=== PATIENT | female | born 1980 | race Caucasian/White ===

== ENCOUNTER 2023-08-23 10:58 | Inpatient (IN) | payer OTHER, SELFPAY ==
--- NOTE | 2023-08-23 11:33 | ED.GENADULT ---
HPI - General Adult General Chief complaint: Failure to Thrive Stated complaint: sick hasn't ate or drank in 4-5 days Time Seen by Provider: 08/23/23 11:07 Source: patient and EMS Mode of arrival: EMS Limitations: other (Acute psychosis) History of Present Illness ED Provider: Taurus HERNANDEZ HPI narrative: 43-year-old female presents from [facility] with increased paranoia, not eating or drinking for the past 3 or 4 days. Patient alert and oriented x4 however is refusing to answer the majority of my questions. No thank you please leave is all she says when I ask her the majority of questions. Unable to obtain clear hpi and ros. Patient states call my to pick me up please im talking to god right now Related Data Allergies Allergy/AdvReac Type Severity Reaction Status Date / Time Unable to Assess Allergy Verified 08/23/23 12:27 Review of Systems Review of Systems: Yes all other systems are reviewed and are negative PMFSH Past Medical History Source: old records reviewed and nursing notes reviewed Social History Social History Advance Directives: No Do you have a plan to hurt others: Vague Physical Exam ED Vital Signs: Vital Signs - 24 hr 08/23/23 18:59 08/23/23 20:30 08/24/23 02:10 Temperature 98.3 F 98.3 F 97.9 F Pulse Rate 104 H 100 96 Respiratory Rate 14 16 16 Blood Pressure 129/90 H 130/79 Pulse Oximetry 98 98 97 Oxygen Delivery Method Room Air Room Air Room Air BMI result Body Mass Index 24.1 Refused Appearance: Alert.? Oriented X3.? No acute cardiopulmonary distress distress.? Head: Normocephalic, atraumatic, no step-offs or deformities Neck: Normal inspection.? Neck supple.? CVS: Pulses normal.? Respiratory: No respiratory distress.? Skin: ? Normal skin color. Extremities: 5/5 strength to bilateral upper and lower extremities Neuro: Oriented X 3.? Refusing neuro assessment Patient is refusing a hands on exam. Not letting me listen to heart, lungs are palpate abdomen. Refusing to do a full neurological assessment. Course Reevaluation(s) Reevaluation #1: refusing everything screaming out speaking to self and responding to internal stimuli Time: 12:10 Reevaluation #2: Continues to refuse labs. Very paranoid. Time: 15:14 Reevaluation #3: Psych aware of this patient. Labs pending Time: 15:14 Additional Reevaluation(s): CBC unremarkable. Elevated sodium of 158, anion gap of 21 likely secondary to starvation, BUN of 30, creatinine 1.02 IV fluids ordered. Magnesium 2.9. Patient has not been eating and drinking which is likely reason why patient's labs like the way they do. Will hydrate with IV fluids and repeat labs. CPK also elevated 749. IV fluids ordered. Sign out to [facility] [employer] Nursing staff had difficulty gaining IV access Phalen's starting fluids, after being medicated she was agreeable. [place] through IV fluid administration she began pulling at her IV access attempting your usual, she was then very fixated that something was wrong with the IV functions becoming increasingly anxious. She was amenable in anxiolytic so she is safe lorazepam.Patient received total of 3 L IV crystalloid, remains hypernatremic, repeat sodium of 158, BUN and creatinine 25/0.85. Starting D5W at 01:25 an hour, Admitted to medicine service, Dr. Tuttle and will place order for psych consult Medications Administered Discontinued Medications Generic Name Dose Route Start Last Admin Trade Name Freq PRN Reason Stop Dose Admin Diphenhydramine HCl 50 mg 08/23/23 12:11 08/23/23 14:00 Diphenhydramine Hcl 50 Mg/Ml Vial IM 08/23/23 12:12 50 mg ONCE ONE Administration Sodium Chloride 1,000 mls @ 999 mls/hr 08/23/23 16:15 08/23/23 23:07 Ns IV 08/23/23 17:15 Infused .Q1H1M MAYA Infusion Sodium Chloride 1,000 mls @ 999 mls/hr 08/23/23 16:15 08/24/23 00:30 Ns IV 08/23/23 17:15 Infused .Q1H1M MAYA Infusion Sodium Chloride 1,000 mls @ 999 mls/hr 08/23/23 16:15 08/23/23 23:07 Ns IV 08/23/23 17:15 Infused .Q1H1M MAYA Infusion Lorazepam 2 mg 08/23/23 12:11 08/23/23 14:00 Lorazepam 2 Mg/Ml Vial IM 08/23/23 12:12 2 mg ONCE ONE Administration Lorazepam 2 mg 08/23/23 21:36 08/23/23 21:45 Lorazepam 2 Mg/Ml Vial IVPUSH 08/23/23 21:37 2 mg ONCE ONE Administration Olanzapine 5 mg 08/23/23 12:11 08/23/23 14:00 Olanzapine 10 Mg Vial IM 08/23/23 12:12 5 mg ONCE ONE Administration Medical Decision Making Medical Decision Making [facility] Narrative: 43-year-old female presents with increasing paranoia coming in from [facility]. Unable to provide me a clear history or review of systems. Physical exam essentially unremarkable however she is refusing a hands on exam unable to auscultate heart, lungs are palpate abdomen. Not participating in neurological assessment History and physical exam concerning for acute paranoia and psychosis. I am concerned for metabolic derangements as patient is not eating or drinking. Will rule out UTI. No signs of traumatic injury to head, neck, chest, abdomen or pelvis. Plan labs, urine, care team evaluation Differential Diagnosis Differential Diagnoses: The differential diagnosis associated with the presentation includes History and physical exam concerning for acute paranoia and psychosis. I am concerned for metabolic derangements as patient is not eating or drinking. Will rule out UTI. No signs of traumatic injury to head, neck, chest, abdomen or pelvis. Admission/Observation Consideration of admission/observation: Escalation of care including admission/observation considered possible Consult Healthcare Provider Management of the patient was discussed with: Behavioral Health Provider Lab Data [facility] Lab Attestation statement: I reviewed the patient's lab results. 08/23/23 15:31 08/24/23 01:10 Labs: Lab Results 08/23/23 08/23/23 08/24/23 Range/Units 15:31 22:44 01:10 WBC 8.3 (4.8-10.8) X10*3/uL RBC 5.33 (4.20-5.50) X10*6/uL Hgb 15.6 (12.0-16.0) g/dl Hct 47.9 H (37.0-47.0) % MCV 89.9 (80.0-98.0) fL MCH 29.3 (27.0-33.0) pg MCHC 32.6 (31.0-35.0) g/dl RDW 13.8 (11.0-16.0) % Plt Count 250 (160-400) X10*3/uL MPV 11.0 (9.4-12.3) fL Immature Gran % (Auto) 0.2 (0.0-0.4) % Neut % (Auto) 60.3 (45-73) % Lymph % (Auto) 30.5 (20-40) % [place] % (Auto) 8.4 (2-11) % Eos % (Auto) 0.1 (0-4) % Baso % (Auto) 0.5 (0-2) % Lymph # (Auto) 2.5 (1.2-4.9) X10*3/uL [place] # (Auto) 0.7 (0.1-1.2) X10*3/uL Eos # (Auto) 0.0 (0.0-0.4) X10*3/uL Baso # (Auto) 0.0 (0.0-0.2) X10*3/uL Abs Immat Gran (auto) 0.02 (0.00-0.03) X10*3/uL Absolute Neuts (auto) 5.0 (2.0-8.3) x10*3/uL Absolute Nucleated RBC 0.000 (0.0-0.012) X10*3/uL Nucleated RBC % (auto) 0.0 (0.0-0.2) /100WBC Hold Blue Top SEE NOTE Sodium 158 H 159 H (135-145) mmol/L Potassium 4.1 3.8 (3.3-5.1) mmol/L Chloride 117 H 125 H (96-108) mmol/L Carbon Dioxide 24 22 (22-29) mmol/L Anion Gap 21 H 16 (12-20) BUN 30 H 25 H (9-16) mg/dL Creatinine 1.02 0.85 (0.5-1.4) mg/dL Estim Creat Clear Calc 63.3 76.0 Estimated GFR 59 > 60 Random Glucose 97 85 (60-115) mg/dL Osmolality 336 H (281-305) mosm/kg Calcium 10.1 8.3 L D (8.4-10.2) mg/dL Magnesium 2.9 H (1.6-2.6) mg/dL Total Bilirubin 1.0 (0.0-1.0) mg/dL AST 51 H (5-31) U/L ALT 64 H (0-31) U/L Alkaline Phosphatase 57 (39-117) U/L Total Creatine Kinase 749 H 695 H (26-140) U/L Total Protein 8.5 H (6.5-8.0) g/dL Albumin 4.8 (3.5-5.0) g/dL Hold Red Top See Note Urine Color Dark Yellow Urine Appearance Cloudy Urine pH 5.5 (5.0-9.0) Ur Specific [place] 1.025 (1.005-1.025) Urine Protein Trace (Neg-Trace) mg/dL Urine Glucose (UA) Negative (Negative) mg/dL Urine Ketones 40 (Negative) mg/dL Urine Blood Trace H (Negative) Urine Nitrite Negative (Negative) Ur Leukocyte Esterase Small (1+) H (Negative) Urine RBC 3-5 H (0-2) /HPF Urine WBC 0-5 (0-5) /HPF Ur Squamous Epith Cells 3-5 (0-2) /HPF Urine Bacteria Trace (None Seen) Hyaline Casts 3-5 (0-2) /LPF Urine Test NEGATIVE (NEGATIVE) Critical Care Time Critical Care Time Critical Care Time: No Discharge Plan Discharge Clinical Impression: Acute psychosis, Dehydration, Acute hypernatremia Patient Disposition: Still a Patient Print Language: Citizen Of [place]
--- NOTE | 2023-08-23 12:04 | MHC.EDTECH ---
Patient refused blood work.
[2023-08-23 12:26] VITALS: BMI 24.1
[2023-08-23] MEDS: diphenhydrAMINE HCL 50 MG/ML VIAL IM (14:00)
[2023-08-23] MEDS: LORazepam 2 MG/ML VIAL IM (14:00)
[2023-08-23] MEDS: OLANZapine 10 MG VIAL 5 MG IM (14:00)
[2023-08-23 15:40] LABS: MANUAL DIFF FLAG NO
[2023-08-23 15:44] LABS: Basophils Percent Auto 0.5 % (0-2); Eosinophils Percent Auto 0.1 % (0-4); Hematocrit 47.9 % (37.0-47.0); Hemoglobin 15.6 g/dl (12.0-16.0); Imm Gran Abs Auto 0.02 X10*3/uL (0.00-0.03); Imm Gran Pct Auto 0.2 % (0.0-0.4); Lymphocytes Absolute Auto 2.5 X10*3/uL (1.2-4.9); Lymphocytes Percent Auto 30.5 % (20-40); Mean Corpuscular HGB Conc 32.6 g/dl (31.0-35.0); Mean Corpuscular Hemoglobin 29.3 pg (27.0-33.0); Mean Corpuscular Volume 89.9 fL (80.0-98.0); Monocytes Absolute Auto 0.7 X10*3/uL (0.1-1.2); Monocytes Percent Auto 8.4 % (2-11); Neutrophils Percent Auto 60.3 % (45-73); Platelet Count 250 X10*3/uL (160-400); Red Blood Count 5.33 X10*6/uL (4.20-5.50); Red Cell Distribution Width 13.8 % (11.0-16.0); White Blood Count 8.3 X10*3/uL (4.8-10.8)
--- NOTE | 2023-08-23 15:48 | PC.NURSE ---
able to draw patient's lab- pt c/o dizziness- explained to patient is due to the medication she received from earlier- encouraged patient to lie back down in bed
[2023-08-23 16:07] LABS: Alanine Aminotransferase 64 U/L (0-31); Albumin Level 4.8 g/dL (3.5-5.0); Alkaline Phosphatase 57 U/L (39-117); Anion Gap 21 (12-20); Aspartate Amino Transferase 51 U/L (5-31); Blood Urea Nitrogen 30 mg/dL (9-16); Calcium 10.1 mg/dL (8.4-10.2); Carbon Dioxide 24 mmol/L (22-29); Chloride 117 mmol/L (96-108); Creatinine Clr Calc Pharmacy 63.3; Estimated Glomerular Filt Rate 59; Glucose Random 97 mg/dL (60-115); Magnesium 2.9 mg/dL (1.6-2.6); Potassium 4.1 mmol/L (3.3-5.1); Sodium 158 mmol/L (135-145); Total Protein 8.5 g/dL (6.5-8.0)
[2023-08-23 16:57] LABS: Osmolality, Serum 336 mosm/kg (281-305)
[2023-08-23] MEDS: 0.9 % Sodium Chloride 1,000 ML 999 ML IV ×3 (18:54→23:07)
[2023-08-23 18:59] VITALS: BP 129/90; PULSE 104; RESP 14; TEMP 36.8; O2SAT 98
--- NOTE | 2023-08-23 19:18 | PC.NURSE ---
ASSUMED CARE OF PT AT THIS TIME. 1&2ND BAG OF IVF INFUSING PER MAR. PT IS CALM/COOPERATIVE RESTING COMFORTABLY IN STRETCHER. PT CHANGED OVER TO HOSPITAL CLOTHES, 1;1 SITTER AT BEDSIDE.
--- NOTE | 2023-08-23 20:28 | PC.NURSE ---
pt was attempting to pull her iv out. iv is painful when flushing, cool to touch. pt is refusing to let this rn place another line. pt states her body is refusing the fluid. Patricio made aware.
[2023-08-23 20:30] VITALS: PULSE 100; RESP 16; TEMP 36.8; O2SAT 98
--- NOTE | 2023-08-23 20:31 | MHC.EDTECH ---
pt refused blood pressure, urine sample, and oral temperature. Also refused new IV placement by JOE Tejada. RN aware
--- NOTE | 2023-08-23 20:40 | PC.NURSE ---
Addendum entered by Patricio Alegre 08/23/23 21:16: extension service specialist in charge Karen, this JOE sinclair and raul RN attempt to connect ivf to iv. pt continues to refuse stating i dont need fluids, go. oswald hearing therapy director aware. no further orders at this time. Original Note: PT ATTEMPTING TO REMOVE IV. IV PATENT AND FLUSHING HOWEVER PT REFUSED FOR FLUIDS TO BE INFUSING. PT REFUSING BLOOD WORK, UA SAMPLE, VITALS AT THIS TIME; PT EDUCATED ON NEED. PROVIDER AWARE.
--- NOTE | 2023-08-23 21:36 | PC.NURSE ---
This rn attempted to reconnect pt ivf and pt refused again. pt states she is a super human and doesnt need food or water. plan is to medicate with ativan per Steven King np
[2023-08-23] MEDS: LORazepam 2 MG/ML VIAL IVPUSH (21:45)
--- NOTE | 2023-08-23 22:07 | PC.NURSE ---
pt is now calm/cooperative speaking full clear sentences. explained to this RN that she just wants to be discharged and not kept overnight, educated pt needs ivf and repeat labs and pt in agreement. ivf infusing per mar. pt explained to this RN life hx, relationship with kids, states shes upset about having to get a divorce with after 21 years. pt denies si/hi to this rn. 1:1 sitter at bedside. axox3.
[2023-08-23 22:54] LABS: Appearance Urine Cloudy; Color Urine Dark Yellow; Glucose Urine UA Negative (Negative); Leukocyte Esterase Urine Small (1+) (Negative); Nitrite Urine Negative (Negative); PH 5.5 (5.0-9.0); Specific Gravity - Urine 1.025 (1.005-1.025); UMIC TRIGGER UACC YES; Urine Blood Trace (Negative); Urine Ketones 40 mg/dL (Negative); Urine Protein Trace mg/dL (Neg-Trace)
[2023-08-23 22:56] LABS: UPreg QC Valid YES; Urine Pregnancy NEGATIVE (NEGATIVE)
[2023-08-23 23:07] LABS: Bacteria Urine Trace (None Seen); UACC Culture Trigger YES; WBC Urine 0-5 /HPF (0-5)
[2023-08-24 01:31] LABS: Anion Gap 16 (12-20); Blood Urea Nitrogen 25 mg/dL (9-16); Calcium 8.3 mg/dL (8.4-10.2); Carbon Dioxide 22 mmol/L (22-29); Chloride 125 mmol/L (96-108); Estimated Glomerular Filt Rate > 60; Glucose Random 85 mg/dL (60-115); Potassium 3.8 mmol/L (3.3-5.1); Sodium 159 mmol/L (135-145)
[2023-08-24 02:10] VITALS: BP 130/79; PULSE 96; RESP 16; TEMP 36.6; O2SAT 97
--- NOTE | 2023-08-24 02:25 | PM.IMHP ---
History of Present Illness Date of Service: 08/24/23 Chief Complaint: Paranoia This is a 43-year-old female who was sent from [facility] with increased paranoia and refusing to eat or drink for the past 4 days. Patient does not want to talk at the time of my evaluation. She is refusing to answer questions and states he wants to be left alone. Earlier patient was found to be hallucinating in the ER. Patient kept on repeating that she was talking to God. Unable to obtain review of systems. In the emergency department, sodium was found to be low and she was resuscitated with IV isotonic crystalloids. No improvement in serum sodium after 3 L of isotonic fluids. Hospitalist team consulted for admission. Review of Systems Review of Systems: Yes Unobtainable due to mental condition and Unobtainable due to mental status PMFSH Pertinent family history: No family history of early CAD Social History Advance Directives: No Do you have a plan to hurt others: Vague Meds Allergies Allergy/AdvReac Type Severity Reaction Status Date / Time Unable to Assess Allergy Verified 08/23/23 12:27 Active Medications: Current Medications Dextrose (D5w) 1,000 mls @ 125 mls/hr IVCONT .Q8H MAYA Physical Exam Vital Signs and Narrative: Vital Signs: Last Vital Signs Temp 97.9 F 08/24/23 02:10 Pulse 96 08/24/23 02:10 Resp 16 08/24/23 02:10 BP 130/79 08/24/23 02:10 Pulse Ox 97 08/24/23 02:10 O2 Del Method Room Air 08/24/23 02:10 BMI result Body Mass Index 24.1 Middle-aged female lying in bed in no distress Neck supple, no JVD, dry mucous membranes Regular rate and rhythm, S1-S2 heard Regular breath sounds bilaterally, no wheezing or crackles appreciated Abdomen soft nontender, no guarding, no rigidity Patient is awake, alert and oriented to self, place, time and person ; no focal motor deficit Psych: Normal mood No pedal edema Results Labs 08/23/23 15:31 08/24/23 01:10 Labs: Laboratory Results - last 24 hr 08/23/23 08/23/23 08/24/23 15:31 22:44 01:10 MCV 89.9 MCH 29.3 MCHC 32.6 RDW 13.8 Plt Count 250 MPV 11.0 Immature Gran % (Auto) 0.2 Neut % (Auto) 60.3 Lymph % (Auto) 30.5 [place] % (Auto) 8.4 Eos % (Auto) 0.1 Baso % (Auto) 0.5 Lymph # (Auto) 2.5 [place] # (Auto) 0.7 Eos # (Auto) 0.0 Baso # (Auto) 0.0 Abs Immat Gran (auto) 0.02 Absolute Neuts (auto) 5.0 Absolute Nucleated RBC 0.000 Nucleated RBC % (auto) 0.0 Hold Blue Top SEE NOTE Anion Gap 21 H 16 Estim Creat Clear Calc 63.3 76.0 Estimated GFR 59 > 60 Random Glucose 97 85 Osmolality 336 H Calcium 10.1 8.3 L D Magnesium 2.9 H Total Bilirubin 1.0 AST 51 H ALT 64 H Alkaline Phosphatase 57 Total Creatine Kinase 749 H 695 H Total Protein 8.5 H Albumin 4.8 Hold Red Top See Note Urine Color Dark Yellow Urine Appearance Cloudy Urine pH 5.5 Ur Specific [place] 1.025 Urine Protein Trace Urine Glucose (UA) Negative Urine Ketones 40 Urine Blood Trace H Urine Nitrite Negative Ur Leukocyte Esterase Small (1+) H Urine RBC 3-5 H Urine WBC 0-5 Ur Squamous Epith Cells 3-5 Urine Bacteria Trace Hyaline Casts 3-5 Urine Test NEGATIVE Assessment and Plan (1) Acute hypernatremia: Status: Acute Plan This is a 43-year-old female who was sent from [facility] facility with increased paranoia and refusing to eat or drink for the past 4 days. #. Acute hypernatremia due to free water deficit: Will admit patient and continue IV hypotonic resuscitation (D5W @125cc/hr). Closely monitor serum sodium. #. Paranoia with hallucination: Patient refusing to eat or drink resulting in high serum sodium. Was found screaming in the ER and was given lorazepam. Psychiatry has been consulted from the ER, appreciate assistance Med rec pending DVT prophylaxis: Lovenox Full code Admit as inpatient and will require two night minimum hospital stay for close monitoring of serum sodium, IV hypotonic fluids (as above), which is not possible in a lesser acute setting. Quality Stroke Does the patient have a stroke diagnosis?: No VTE Prior VTE?: No VTE Risk Level:: Medical - moderate - high VTE Device Contraindication: Treatment Not Indicated VTE Drug Contraindication: N/A - Med Ordered
[2023-08-24] MEDS: Dextrose 5 % 1,000 ML 125 ML IVCONT (03:56)
--- NOTE | 2023-08-24 04:07 | PC.NURSE ---
Lina DIAZ from [facility] aware of pt admission to [facility].
[2023-08-24 06:09] LABS: MANUAL DIFF FLAG NO
[2023-08-24 06:22] LABS: Basophils Percent Auto 0.6 % (0-2); Eosinophils Absolute Auto 0.1 X10*3/uL (0.0-0.4); Hematocrit 38.8 % (37.0-47.0); Imm Gran Abs Auto 0.02 X10*3/uL (0.00-0.03); Imm Gran Pct Auto 0.4 % (0.0-0.4); Lymphocytes Absolute Auto 1.8 X10*3/uL (1.2-4.9); Lymphocytes Percent Auto 35.1 % (20-40); Mean Corpuscular HGB Conc 31.2 g/dl (31.0-35.0); Mean Corpuscular Hemoglobin 28.8 pg (27.0-33.0); Mean Corpuscular Volume 92.4 fL (80.0-98.0); Monocytes Absolute Auto 0.5 X10*3/uL (0.1-1.2); Neutrophils Absolute Auto 2.7 x10*3/uL (2.0-8.3); Neutrophils Percent Auto 53.9 % (45-73); Platelet Count 157 X10*3/uL (160-400); Red Cell Distribution Width 13.7 % (11.0-16.0)
[2023-08-24 06:30] LABS: Hemoglobin 12.1 g/dl (12.0-16.0)
[2023-08-24 06:39] LABS: Anion Gap 13 (12-20); Blood Urea Nitrogen 22 mg/dL (9-16); Calcium 8.5 mg/dL (8.4-10.2); Carbon Dioxide 24 mmol/L (22-29); Chloride 123 mmol/L (96-108); Creatinine Clr Calc Pharmacy 78.7; Estimated Glomerular Filt Rate > 60; Glucose Random 137 mg/dL (60-115); Potassium 3.8 mmol/L (3.3-5.1); Sodium 156 mmol/L (135-145)
[2023-08-24 07:46] VITALS: O2SAT 98
--- NOTE | 2023-08-24 08:11 | PC.NURSE ---
This RN touched base with joana/ about patient in regards to a new section as patient is getting medically admitted and her 21 covers ED with n new section in place, Pt is still awaiting Careteam and full hayde eval at this time. Careteam to fill out new section. Pt to remain having a 1:1 at this time.
[2023-08-24 09:29] VITALS: BP 134/74; PULSE 84; RESP 14; TEMP 36.1; O2SAT 100
--- NOTE | 2023-08-24 09:31 | PM.EVENT ---
Event Note Date of Service: 08/24/23 Event Note: pt seen and examined. She was admitted this morning. She is a 43-year-old female sent from [facility] facility with increased paranoia and refusing to eat or drink for the past 4 days and as result her sodium level is getting dangerously high presently at 156. She is still refusing IVF, refusing to drink by mouth and resitant to care. Psych needs to get involve OMAR and help with plan to care for her to avoid serious medical complications. Time Spent With Patient Time: Total time managing care of this patient today ____ minutes.
--- NOTE | 2023-08-24 10:00 | PC.NURSE ---
Addendum entered by Jeri Gutierrez RN 08/24/23 19:33: Patient was medicated with Zyprexa and Atvian, allowed for IV fluids to be infused after new ultrasound guided IV placed. Patient did drink small amount of fluids and eat small portion of her dinner. Family was updated by hospitalist and psychiatric provider. Original Note: Patient arrived to the unit via stretchers, IVF attached to the IV but not infusing. Patient was asked to verify name and but refused to answer. Patient refused admission assessment stating she does not want to be touched. Patient requested to have IV removed and refused to order lunch stating she will not eat at all. Patient made a statement: I have not been eating or drinking for 7 months now and I will not take any medications. It is my right to refuse all treatments because I will be healed by God Patient continue to ask to have IV removed, notified.
--- NOTE | 2023-08-24 10:35 | MHC.CM.PN ---
FRANCISCO DELIVERED. PATIENT UNWILLING TO ANSWER FIRE PATROL QUESTIONS OTHER THAN TO CONFIRM THAT SHE COMES FROM [facility] AND IS UNSURE IF SHE HAS A PCP. DP: AWAITING PSYCH/CARE EVAL. 1:1 SITTER AT BEDSIDE. CM WILL CONTINUE TO FOLLOW AND CONTINUE ATTEMPTS TO COMPLETE FIRE PATROL.
[2023-08-24] MEDS: LORazepam 2 MG/ML VIAL IVPUSH (14:05)
[2023-08-24] MEDS: OLANZapine 10 MG VIAL IM (14:05)
--- NOTE | 2023-08-24 14:53 | PHA.MEDREC ---
Pharmacy Consult ? Medication Reconciliation Pharmacy has completed the medication reconciliation. Utilized list from Juliet escamilla to confirm med list.
[2023-08-24 15:34] VITALS: BP 137/76; PULSE 76; RESP 16; TEMP 37.2; O2SAT 100
--- NOTE | 2023-08-24 17:08 | P.CNPS_ITS ---
History of Present Illness Date of Service: 08/24/2023 Chief Complaint: Paranoia Reason for Consult: catatonia/psychosis/delusions Discussed with referring provider: Yes Sources of Information: patient interviewed, chart reviewed and crisis/core team assessment reviewed Additional Sources of Information: - Sascha [phone] [facility] Narrative: Mrs. Johnson is a 43 year-old woman with symptoms consistent with Bipolar Disorder who was sent from [facility] due to not eating, drinking due jainism delusions. In the ED, pt found to have dangerously high level of Na due to dehydration. Pt presents as staring, minimally verbal, guarded, asking people to leave her alone. She was given yesterday olanzapine 5mg IM and ativan 2mg IM- slightly more talkative but still floridly psychotic and refusing to eat or drink. Pt seen in her room. Pt reports she hears voice of Steffen. She reports she has special gifts given by God. She reports she has to fasten for about 7 months per request of Steffen. Pt reports she is going through a divorce. She is carrying a green book which pt reports is a book of prayers. She is disheveled and malodorous. She is not showing understanding of medical condition currently treated. Collateral information was gathered from her Sascha- reports they have been together for 24 years. He reports pt had first episode of psychosis/delusions back in 2010- going outside on the road, praying, reporting going through some spiritual awakening. reports pt decline psychiatric care and she eventually seemed to get better. He had another episode in January of 2023, this time again religiously preoccupied, but also increasingly more paranoid towards her . reports pt thinks he is a [place] spy and is trying to kill her. Recently, pt continued to present as paranoid towards , talking about hearing Steffen voice, not eating, staring, had threatened to kill and barricaded herself in the bathroom. Per ,pt has never been on antipsychotic medication given that pt refuses. 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 Past Psychiatric History: INpt: none in the past OP: none Past med trials: none. She was started on olanzapine at [facility] but unclear if she took any medication. Medical Evaluation Reviewed: Yes Diagnostics Vital Signs (24Hr): Vital Signs - 24 hr 08/23/23 18:59 08/23/23 20:30 08/24/23 02:10 Temperature 98.3 F 98.3 F 97.9 F Pulse Rate 104 H 100 96 Respiratory Rate 14 16 16 Blood Pressure 129/90 H 130/79 Pulse Oximetry 98 98 97 Oxygen Delivery Method Room Air Room Air Room Air 08/24/23 07:46 08/24/23 09:29 08/24/23 15:34 Temperature 96.9 F 98.9 F Pulse Rate 84 76 Respiratory Rate 14 16 Blood Pressure 134/74 137/76 Pulse Oximetry 98 100 100 Oxygen Delivery Method Room Air Room Air Room Air BMI result Body Mass Index 24.1 Labs 08/24/23 05:58 08/25/23 05:38 Labs: Laboratory Results - last 48 hr 08/23/23 08/23/23 08/24/23 15:31 22:44 01:10 WBC 8.3 RBC 5.33 Hgb 15.6 Hct 47.9 H MCV 89.9 MCH 29.3 MCHC 32.6 RDW 13.8 Plt Count 250 MPV 11.0 Immature Gran % (Auto) 0.2 Neut % (Auto) 60.3 Lymph % (Auto) 30.5 [place] % (Auto) 8.4 Eos % (Auto) 0.1 Baso % (Auto) 0.5 Lymph # (Auto) 2.5 [place] # (Auto) 0.7 Eos # (Auto) 0.0 Baso # (Auto) 0.0 Abs Immat Gran (auto) 0.02 Absolute Neuts (auto) 5.0 Absolute Nucleated RBC 0.000 Nucleated RBC % (auto) 0.0 Hold Blue Top SEE NOTE Sodium 158 H 159 H Potassium 4.1 3.8 Chloride 117 H 125 H Carbon Dioxide 24 22 Anion Gap 21 H 16 BUN 30 H 25 H Creatinine 1.02 0.85 Estim Creat Clear Calc 63.3 76.0 Estimated GFR 59 > 60 Random Glucose 97 85 Osmolality 336 H Calcium 10.1 8.3 L D Magnesium 2.9 H Total Bilirubin 1.0 AST 51 H ALT 64 H Alkaline Phosphatase 57 Total Creatine Kinase 749 H 695 H Total Protein 8.5 H Albumin 4.8 Hold Red Top See Note Urine Color Dark Yellow Urine Appearance Cloudy Urine pH 5.5 Ur Specific [place] 1.025 Urine Protein Trace Urine Glucose (UA) Negative Urine Ketones 40 Urine Blood Trace H Urine Nitrite Negative Ur Leukocyte Esterase Small (1+) H Urine RBC 3-5 H Urine WBC 0-5 Ur Squamous Epith Cells 3-5 Urine Bacteria Trace Hyaline Casts 3-5 Urine Test NEGATIVE 08/24/23 05:58 WBC 5.0 RBC 4.20 D Hgb 12.1 D Hct 38.8 MCV 92.4 MCH 28.8 MCHC 31.2 RDW 13.7 Plt Count 157 L D MPV 11.0 Immature Gran % (Auto) 0.4 Neut % (Auto) 53.9 Lymph % (Auto) 35.1 [place] % (Auto) 9.0 Eos % (Auto) 1.0 Baso % (Auto) 0.6 Lymph # (Auto) 1.8 [place] # (Auto) 0.5 Eos # (Auto) 0.1 Baso # (Auto) 0.0 Abs Immat Gran (auto) 0.02 Absolute Neuts (auto) 2.7 Absolute Nucleated RBC 0.000 Nucleated RBC % (auto) 0.0 Hold Blue Top Sodium 156 H Potassium 3.8 Chloride 123 H Carbon Dioxide 24 Anion Gap 13 BUN 22 H Creatinine 0.82 Estim Creat Clear Calc 78.7 Estimated GFR > 60 Random Glucose 137 H Osmolality Calcium 8.5 Magnesium Total Bilirubin AST ALT Alkaline Phosphatase Total Creatine Kinase Total Protein Albumin Hold Red Top Urine Color Urine Appearance Urine pH Ur Specific [place] Urine Protein Urine Glucose (UA) Urine Ketones Urine Blood Urine Nitrite Ur Leukocyte Esterase Urine RBC Urine WBC Ur Squamous Epith Cells Urine Bacteria Hyaline Casts Urine Test Mental Status Exam Mental Status Exam Narrative: Appearance: wearing hospital gown, disheveled, minimal eye contact, staring at ceiling, others closes her eyes Behavior: very guarded and suspicious, although slightly more talkative after receiving ativan and olanzapine Psychomotor: retardation noted Speech: minimally spontaneous, decrease verbalization Mood: fine Affect: constricted SI: denies HI: does not respond VH/AH: internally preoccupied, hearing voice of Steffen who tells her not to eat for 7 months Delusions: jainism and paranoid delusions Insight/judgment: impaired x2 Memory/cog: alert, not oriented to situation Medications Medications Current Medications Acetaminophen (Acetaminophen 325 Mg Tablet) 650 mg PO Q6H PRN PRN Reason: Pain, Mild (Pain Scale 1-3), fever or headache Calcium Carbonate (Calcium Carbonate 750 Mg Tab.Chew) 750 mg PO Q4H PRN PRN Reason: Heartburn Enoxaparin Sodium (Enoxaparin Sodium 40 Mg/0.4 Ml Syringe) 40 mg SUBCUT Q24H [facility] Last Admin: 08/24/23 08:44 Dose: Not Given Dextrose (D5w) 1,000 mls @ 150 mls/hr IVCONT .Q6H40M [facility] Last Infusion: 08/24/23 14:50 Dose: 150 mls/hr Magnesium Hydroxide (Milk Of Magnesia 30 Ml Oral.Susp) 30 ml PO DAILY PRN PRN Reason: Constipation Melatonin (Melatonin 3 Mg Tablet) 6 mg PO BEDTIME PRN PRN Reason: Insomnia Olanzapine (Olanzapine 5 Mg Tablet) 5 mg PO BID [facility] Olanzapine (Olanzapine 10 Mg Vial) 5 mg IM BID PRN PRN Reason: IF REFUSES PO OLANZAPINE DOSE Ondansetron HCl (Ondansetron Hcl 4 Mg/2 Ml Vial) 4 mg IVPUSH Q8H PRN PRN Reason: Nausea and Vomiting Sodium Chloride (0.9 % Sodium Chloride Flush 3 Ml Syringe) 3 ml IVFLUSH QSHIFT [facility] Last Admin: 08/24/23 16:56 Dose: Not Given Allergies Allergies Allergy/AdvReac Type Severity Reaction Status Date / Time Unable to Assess Allergy Verified 08/23/23 12:27 Assessment & Plan Assessment & Plan (1) Severe manic bipolar 1 disorder with psychotic behavior: Status: Acute Code(s): F31.2 - Bipolar disorder, current episode manic severe with psychotic features Plan Mrs. Johnson is a 43 year-old woman who has had episodes of psychosis, jainism preoccupation with some degree of catatonia like symptoms such as mutism, negativism, blank stare since 2010. It appears she has been largely untreated but progressively getting worse to the point that now due to lack of oral intake her sodium is dangerously high. Pt does not show capacity to make medical decisions as underlying delusions and psychosis are affecting her judgment and insight. Discussed with hospitalist and her initiation of ativan 1mg po TID for catatonia, olanzapine 5mg po TID for psychosis. continue IV fluids and medical treatment. Pt should be on sect 12a- can't leave against medical advise and once clear should be assessed for inpatient psychiatric admission. Total time managing care of this patient today ____ minutes.
[2023-08-24] MEDS: Dextrose 5 % 1,000 ML 150 ML IVCONT ×2 (18:16→23:53)
--- NOTE | 2023-08-24 19:23 | PC.NURSE ---
Patient arrived to the unit via stretchers, IVF attached to the IV but not infusing. Patient was asked to verify name and but refused to answer. Patient refused admission assessment stating she does not want to be touched. Patient requested to have IV removed and refused to order lunch stating she will not eat at all. Patient made a statement: I have not been eating or drinking for 7 months now and I will not take any medications. It is my right to refuse all treatments because I will be healed by God Patient continue to ask to have IV removed, notified.
[2023-08-24 19:31] VITALS: BP 127/78; PULSE 75; RESP 18; TEMP 36.3; O2SAT 97
[2023-08-24] MEDS: OLANZapine 5 MG TABLET PO (22:41)
[2023-08-24 23:37] LABS: Anion Gap 11 (12-20); Carbon Dioxide 28 mmol/L (22-29); Chloride 112 mmol/L (96-108); Potassium 3.1 mmol/L (3.3-5.1); Sodium 148 mmol/L (135-145)
[2023-08-25 03:22] VITALS: BP 128/78; PULSE 87; RESP 16; TEMP 36.1; O2SAT 100
--- NOTE | 2023-08-25 06:22 | PC.NURSE ---
Addendum entered by Amaya Das RN 08/25/23 07:11: per hospitalist okay leave iv out for now, psych to see patient this morning Original Note: 0430- patient noted by sitter to be touching and moving her iv tubing, stating she wants it out. Entered room 3 times to explain the importance of receiving her iv fluid pertaining to her labwork. pt kept repeating I am fine . discussion held as to her intake, sodium level, etc... called back within 10 minutes and pt had pulled out her iv catheter. Refusing at first to open her arm so I could view the sight, kept saying don't touch me . she finally extended her arm and no injury noted. removed catheter intact, old bruising noted from a previous iv site. Shortly after she removed her telepak and refused to have it put back in place. She stayed in bed for awhile, reading her Bible, however, she exited the bed and sitter at her side as she came out to hallway, gait somewhat unsteady, declining redirection back to her room, escorted down hallway and then when at end by window not cooperative to turn around, and when gently asked to turn and have arm to her back for safety, she again stated don't touch me to this information writer and sitter. Security was called for assistance, however, she was redirected back to her room without their intervention. Hospitalist and nursing Supervisor [address] both alerted to events. Hospitalist said okay let her be for now , psych team will have to see her first thing in morning. Patient exited her bed a second time and was veering into other rooms with sitter next to her, not cooperative to turn around, was walking this time with RN coworker. security called again, pt heard they were coming to assist, she did return to her room and security informed pt of the need to stay in her room, she said okay, however, she never looks up or makes eye contact. when back to bed this time she asked that we call her to come get her and pt was reassured family was returning as they said late morning. Throughout her restlessness, she was asked many times if she had pain, hungry, thirsty, headache, dizzy, sad, cold......every answer was Im fine . hospitalist updated, clinic supervisor to unit, sitter at bedside at all time, pt monitored frequently.
[2023-08-25 07:19] LABS: Anion Gap 11 (12-20); Blood Urea Nitrogen 7 mg/dL (9-16); Calcium 8.8 mg/dL (8.4-10.2); Carbon Dioxide 28 mmol/L (22-29); Chloride 110 mmol/L (96-108); Creatinine Clr Calc Pharmacy 102.5; Estimated Glomerular Filt Rate > 60; Glucose Random 78 mg/dL (60-115); Potassium 2.9 mmol/L (3.3-5.1); Sodium 146 mmol/L (135-145)
--- NOTE | 2023-08-25 10:20 | P.PNIM_ITS ---
Subjective Subjective Date of Service: 08/25/23 Interval History: f/u on paranoia, psychosis, refusing to eat or drink and sodium has been up, sodium level is better, she is still refusing to eat, drink or take meds saying she has sacred heart and has rights Physical Exam 2 Vital Signs: Vital Signs: Last Vital Signs Temp 96.9 F 08/25/23 03:22 Pulse 87 08/25/23 03:22 Resp 16 08/25/23 03:22 BP 128/78 08/25/23 03:22 Pulse Ox 100 08/25/23 03:22 O2 Del Method Room Air 08/25/23 03:22 BMI result Body Mass Index 24.1 alert, talking, walking down the beach, but not able carry a reasonable conversation with her Objective Data Active Medications Acetaminophen (Acetaminophen 325 Mg Tablet) 650 mg PO Q6H PRN PRN Reason: Pain, Mild (Pain Scale 1-3), fever or headache Calcium Carbonate (Calcium Carbonate 750 Mg Tab.Chew) 750 mg PO Q4H PRN PRN Reason: Heartburn Enoxaparin Sodium (Enoxaparin Sodium 40 Mg/0.4 Ml Syringe) 40 mg SUBCUT Q24H [facility] Last Admin: 08/25/23 07:38 Dose: Not Given Documented By: COTEMA Non-Admin Reason: Patient Refused Lorazepam (Lorazepam 1 Mg Tablet) 1 mg PO TID [facility] Last Admin: 08/24/23 21:33 Dose: Not Given Documented By: LUO Non-Admin Reason: sleeping, not interacting at this time, will Magnesium Hydroxide (Milk Of Magnesia 30 Ml Oral.Susp) 30 ml PO DAILY PRN PRN Reason: Constipation Melatonin (Melatonin 3 Mg Tablet) 6 mg PO BEDTIME PRN PRN Reason: Insomnia Olanzapine (Olanzapine 5 Mg Tablet) 5 mg PO BID [facility] Last Admin: 08/24/23 22:41 Dose: 5 mg Documented By: LOU Olanzapine (Olanzapine 10 Mg Vial) 5 mg IM BID PRN PRN Reason: IF REFUSES PO OLANZAPINE DOSE Ondansetron HCl (Ondansetron Hcl 4 Mg/2 Ml Vial) 4 mg IVPUSH Q8H PRN PRN Reason: Nausea and Vomiting Sodium Chloride (0.9 % Sodium Chloride Flush 3 Ml Syringe) 3 ml IVFLUSH QSHIFT [facility] Last Admin: 08/25/23 07:12 Dose: Not Given Documented By: ESTRELLITA Non-Admin Reason: No Access Labs 08/24/23 05:58 08/25/23 05:38 Labs: Laboratory Results - last 24 hr 08/24/23 08/25/23 23:14 05:38 Anion Gap 11 L 11 L Estim Creat Clear Calc 102.5 Estimated GFR > 60 Random Glucose 78 Calcium 8.8 Assessment and Plan (1) Severe manic bipolar 1 disorder with psychotic behavior: Status: Acute (2) Acute hypernatremia: Status: Acute (3) Acute psychosis: Status: Acute Plan 43-year-old female who was sent from [facility] with increased paranoia and refusing to eat or drink and found to have hypernatremia. Acute hypernatremia due to free water deficit from refusing to eat/drink. Was able to give some IVF overnight with improvement in hypernatremia to 146, however this is likely to go up again since she is still refusing to drink water. Will recheck sodium later today and likely restart fluid. Nephrology to help with management Hypokalemia--check mag, Ordered oral K but she's refuing and may need IV K Paranoia with hallucination: She is refusing to take Med. Presently has Olanzapine 5 mg twice PO if doesn't take to get it IM, Ativan 1 mg TID orally if not to give IV. Other Psych meds on hold until eating DVT prophylaxis: Lovenox Full code Need for inpatient:management of hypernatremia in setting of not eating or drinking in setting of acute Psychosis Quality Stroke Does the patient have a stroke diagnosis?: No VTE Prior VTE?: No VTE Risk Level:: Medical - moderate - high VTE Device Contraindication: Treatment Not Indicated VTE Drug Contraindication: N/A - Med Ordered
--- NOTE | 2023-08-25 10:44 | MHC.CM.PN ---
Per MD rounds patient not medically cleared, abnormal labs. Patient continuing to refuse all medications. Psych involved. CM will continue to follow.
[2023-08-25] MEDS: LORazepam 1 MG TABLET PO ×2 (11:27→15:49)
[2023-08-25] MEDS: Potassium Chloride ER 20 MEQ TAB.ER.PRT 40 MEQ PO (11:27)
[2023-08-25] MEDS: OLANZapine 5 MG TABLET PO (11:28)
--- NOTE | 2023-08-25 11:38 | PC.NURSE ---
Patient agreeable to take PO medications per MAR, Patient took po pills and then spit out part of a potassium pill and part of another pill but this RN is unable to recognize which pill was spit out. Dr Salmeron made aware.
--- NOTE | 2023-08-25 12:06 | PM.CNNEP ---
History of Present Illness Reason for Consult Consult date: 08/25/23 Reason for consult: Hypokalemia Chief Complaint Chief complaint: Paranoia History of Present Illness Narrative: 43-year-old female who was sent from [facility] with increased paranoia and refusing to eat or drink for the past 4 days. Patient does not want to talk at the time of my evaluation. She is refusing to answer questions and states he wants to be left alone. Earlier patient was found to be hallucinating in the ER. Patient kept on repeating that she was talking to God. Unable to obtain review of systems. In the emergency department, sodium was found to be low and she was resuscitated with IV isotonic crystalloids. No improvement in serum sodium after 3 L of isotonic fluids REfusing to talk Refusing IVF Review of Systems Review of Systems Yes Unobtainable due to mental status PMFSH Social History Social History Household Members: Other Housing: Other Comment: sitter at bedside Patient Tobacco Use Status: Never used Tobacco service: No Meds Allergies Allergy/AdvReac Type Severity Reaction Status Date / Time Unable to Assess Allergy Verified 08/23/23 12:27 Active Medications: Current Medications Acetaminophen (Acetaminophen 325 Mg Tablet) 650 mg PO Q6H PRN PRN Reason: Pain, Mild (Pain Scale 1-3), fever or headache Calcium Carbonate (Calcium Carbonate 750 Mg Tab.Chew) 750 mg PO Q4H PRN PRN Reason: Heartburn Enoxaparin Sodium (Enoxaparin Sodium 40 Mg/0.4 Ml Syringe) 40 mg SUBCUT Q24H [facility] Last Admin: 08/25/23 07:38 Dose: Not Given Lorazepam (Lorazepam 1 Mg Tablet) 1 mg PO TID [facility] Last Admin: 08/25/23 11:27 Dose: 1 mg Lorazepam (Lorazepam 2 Mg/Ml Vial) 1 mg IVPUSH TID PRN PRN Reason: IF REFUSES PO LORAZEPAM DOSE Magnesium Hydroxide (Milk Of Magnesia 30 Ml Oral.Susp) 30 ml PO DAILY PRN PRN Reason: Constipation Melatonin (Melatonin 3 Mg Tablet) 6 mg PO BEDTIME PRN PRN Reason: Insomnia Olanzapine (Olanzapine 5 Mg Tablet) 5 mg PO BID [facility] Last Admin: 08/25/23 11:28 Dose: 5 mg Olanzapine (Olanzapine 10 Mg Vial) 5 mg IM BID PRN PRN Reason: IF REFUSES PO OLANZAPINE DOSE Ondansetron HCl (Ondansetron Hcl 4 Mg/2 Ml Vial) 4 mg IVPUSH Q8H PRN PRN Reason: Nausea and Vomiting Sodium Chloride (0.9 % Sodium Chloride Flush 3 Ml Syringe) 3 ml IVFLUSH QSHIFT [facility] Last Admin: 08/25/23 07:12 Dose: Not Given Home Medications ?Medication ?Instructions ?Recorded ?Confirmed ?Last Taken ?Type acetaminophen 325 mg tablet 650 mg PO Q4H PRN Pain 08/24/23 08/24/23 Unknown History benzocaine 15 mg-menthol 3.6 mg 1 madeline mucous membrane Q2H PRN Sore 08/24/23 08/24/23 Unknown History lozenges Throat bismuth subsalicylate 262 mg 1 tab PO QID PRN Nausea And 08/24/23 08/24/23 Unknown History chewable tablet Vomiting calcium carbonate 500 mg PO Q4H PRN Heartburn 08/24/23 08/24/23 Unknown History hydroxyzine pamoate 25 mg capsule 25 mg PO TID PRN anxity 08/24/23 08/24/23 Unknown History ibuprofen 400 mg tablet 400 mg PO Q8H PRN body ache 08/24/23 08/24/23 Unknown History lorazepam 1 mg tablet 1 mg PO BID PRN Anxiety 08/24/23 08/24/23 Unknown History melatonin 3 mg tablet 3 mg PO BEDTIME PRN Sleep 08/24/23 08/24/23 Unknown History olanzapine 10 mg tablet 10 mg PO BEDTIME 08/24/23 08/24/23 Unknown History olanzapine 5 mg disintegrating 5 mg PO BID PRN agitation/psychosis 08/24/23 08/24/23 Unknown History tablet sennosides 8.6 mg tablet 17.2 mg PO DAILY PRN Constipation 08/24/23 08/24/23 Unknown History trazodone 50 mg tablet 50 mg PO BEDTIME PRN Sleep 08/24/23 08/24/23 Unknown History Physical Exam Vital Signs: Last Vital Signs Temp 96.9 F 08/25/23 03:22 Pulse 87 08/25/23 03:22 Resp 16 08/25/23 03:22 BP 128/78 08/25/23 03:22 Pulse Ox 100 08/25/23 03:22 O2 Del Method Room Air 08/25/23 03:22 BMI result Body Mass Index 24.1 Eyes closed Did not consent for examination Results Lab Results 08/24/23 05:58 08/25/23 05:38 Lab results: Chemistry 08/23/23 08/24/23 08/24/23 15:31 01:10 05:58 Sodium 158 H 159 H 156 H Potassium 4.1 3.8 3.8 Carbon Dioxide 24 BUN 30 H 25 H 22 H Creatinine 1.02 0.85 0.82 Calcium 10.1 8.3 L D 8.5 08/24/23 08/25/23 23:14 05:38 Sodium 148 H 146 H Potassium 3.1 L 2.9 L* Carbon Dioxide 28 28 BUN 7 L Creatinine 0.63 Calcium 8.8 Hematology 08/23/23 08/24/23 15:31 05:58 WBC 8.3 5.0 Hgb 15.6 12.1 D Plt Count 250 157 L D Urinalysis 08/23/23 22:44 Urine Color Dark Yellow Urine Appearance Cloudy Urine pH 5.5 Ur Specific [place] 1.025 Urine Protein Trace Urine Glucose (UA) Negative Urine Ketones 40 Urine Blood Trace H Urine Nitrite Negative Ur Leukocyte Esterase Small (1+) H Urine RBC 3-5 H Urine WBC 0-5 Ur Squamous Epith Cells 3-5 Hyaline Casts 3-5 Assessment and Plan (1) Acute hypernatremia: Status: Acute Plan Due to free water loss Needs to drink PO water IV hydration with D5W Replace K orally Supportive care Needs psychiatric intervention Procedures Date of Service Date of Service: 08/25/23
--- NOTE | 2023-08-25 12:55 | PM.PSYCN ---
History of Present Illness Date of Service: 08/25/2023 Chief Complaint: Paranoia Reason for Consult: delusions/catatonia Requesting physician: Avery Salmeron Discussed with referring provider: Yes Sources of Information: patient interviewed, chart reviewed and crisis/core team assessment reviewed Additional Sources of Information: family HPI Narrative: Interim Hx: pt talking more, less mutism, and less staring although continues to present floridly delusional and psychotic. Pt reports Steffen is telling her that soon earth will be divided between good and bad people. Pt reports Government is trying to insert chips on people to control them and she has been chosen by God to help protect people from Government that is trying to control them. She is very suspicious of her own family. She states her parents and can't be trusted, they are against God. She states she was asked by Steffen to fast and thinks she needs to do it for more time, that fasting is not over. No understanding of current medical condition. Critically low level of K and pt was refusing initially to recheck labs. She is selective about medications and spit them. She denies SI/HI. Past Psychiatric History: INpt: none in the past OP: none Past med trials: none. She was started on olanzapine at [facility] but unclear if she took any medication. Diagnostics Vital Signs (24Hr): Vital Signs - 24 hr 08/24/23 15:34 08/24/23 19:31 08/25/23 03:22 Temperature 98.9 F 97.4 F 96.9 F Pulse Rate 76 75 87 Respiratory Rate 16 18 16 Blood Pressure 137/76 127/78 128/78 Pulse Oximetry 100 97 100 Oxygen Delivery Method Room Air Room Air Room Air BMI result Body Mass Index 24.1 Labs 08/24/23 05:58 08/27/23 05:47 Labs: Laboratory Results - last 48 hr 08/23/23 08/23/23 08/24/23 15:31 22:44 01:10 WBC 8.3 RBC 5.33 Hgb 15.6 Hct 47.9 H MCV 89.9 MCH 29.3 MCHC 32.6 RDW 13.8 Plt Count 250 MPV 11.0 Immature Gran % (Auto) 0.2 Neut % (Auto) 60.3 Lymph % (Auto) 30.5 [place] % (Auto) 8.4 Eos % (Auto) 0.1 Baso % (Auto) 0.5 Lymph # (Auto) 2.5 [place] # (Auto) 0.7 Eos # (Auto) 0.0 Baso # (Auto) 0.0 Abs Immat Gran (auto) 0.02 Absolute Neuts (auto) 5.0 Absolute Nucleated RBC 0.000 Nucleated RBC % (auto) 0.0 Hold Blue Top SEE NOTE Sodium 158 H 159 H Potassium 4.1 3.8 Chloride 117 H 125 H Carbon Dioxide 24 22 Anion Gap 21 H 16 BUN 30 H 25 H Creatinine 1.02 0.85 Estim Creat Clear Calc 63.3 76.0 Estimated GFR 59 > 60 Random Glucose 97 85 Osmolality 336 H Calcium 10.1 8.3 L D Magnesium 2.9 H Total Bilirubin 1.0 AST 51 H ALT 64 H Alkaline Phosphatase 57 Total Creatine Kinase 749 H 695 H Total Protein 8.5 H Albumin 4.8 Hold Red Top See Note Urine Color Dark Yellow Urine Appearance Cloudy Urine pH 5.5 Ur Specific [place] 1.025 Urine Protein Trace Urine Glucose (UA) Negative Urine Ketones 40 Urine Blood Trace H Urine Nitrite Negative Ur Leukocyte Esterase Small (1+) H Urine RBC 3-5 H Urine WBC 0-5 Ur Squamous Epith Cells 3-5 Urine Bacteria Trace Hyaline Casts 3-5 Urine Test NEGATIVE 08/24/23 08/24/23 08/25/23 05:58 23:14 05:38 WBC 5.0 RBC 4.20 D Hgb 12.1 D Hct 38.8 MCV 92.4 MCH 28.8 MCHC 31.2 RDW 13.7 Plt Count 157 L D MPV 11.0 Immature Gran % (Auto) 0.4 Neut % (Auto) 53.9 Lymph % (Auto) 35.1 [place] % (Auto) 9.0 Eos % (Auto) 1.0 Baso % (Auto) 0.6 Lymph # (Auto) 1.8 [place] # (Auto) 0.5 Eos # (Auto) 0.1 Baso # (Auto) 0.0 Abs Immat Gran (auto) 0.02 Absolute Neuts (auto) 2.7 Absolute Nucleated RBC 0.000 Nucleated RBC % (auto) 0.0 Hold Blue Top Sodium 156 H 148 H 146 H Potassium 3.8 3.1 L 2.9 L* Chloride 123 H 112 H 110 H Carbon Dioxide 24 28 28 Anion Gap 13 11 L 11 L BUN 22 H 7 L Creatinine 0.82 0.63 Estim Creat Clear Calc 78.7 102.5 Estimated GFR > 60 > 60 Random Glucose 137 H 78 Osmolality Calcium 8.5 8.8 Magnesium Total Bilirubin AST ALT Alkaline Phosphatase Total Creatine Kinase Total Protein Albumin Hold Red Top Urine Color Urine Appearance Urine pH Ur Specific [place] Urine Protein Urine Glucose (UA) Urine Ketones Urine Blood Urine Nitrite Ur Leukocyte Esterase Urine RBC Urine WBC Ur Squamous Epith Cells Urine Bacteria Hyaline Casts Urine Test Mental Status Exam Mental Status Exam Narrative: Appearance: wearing hospital gown, disheveled, minimal eye contact, staring at ceiling, others closes her eyes Behavior: very guarded and suspicious, although slightly more talkative after receiving ativan and olanzapine Psychomotor: retardation noted Speech: minimally spontaneous, decrease verbalization Mood: fine Affect: constricted SI: denies HI: does not respond VH/AH: internally preoccupied, hearing voice of Steffen who tells her not to eat for 7 months Delusions: rastafarian and paranoid delusions Insight/judgment: impaired x2 Memory/cog: alert, not oriented to situation Medications Medications Current Medications Acetaminophen (Acetaminophen 325 Mg Tablet) 650 mg PO Q6H PRN PRN Reason: Pain, Mild (Pain Scale 1-3), fever or headache Calcium Carbonate (Calcium Carbonate 750 Mg Tab.Chew) 750 mg PO Q4H PRN PRN Reason: Heartburn Enoxaparin Sodium (Enoxaparin Sodium 40 Mg/0.4 Ml Syringe) 40 mg SUBCUT Q24H [facility] Last Admin: 08/25/23 07:38 Dose: Not Given Lorazepam (Lorazepam 1 Mg Tablet) 1 mg PO TID [facility] Last Admin: 08/25/23 11:27 Dose: 1 mg Lorazepam (Lorazepam 2 Mg/Ml Vial) 1 mg IVPUSH TID PRN PRN Reason: IF REFUSES PO LORAZEPAM DOSE Magnesium Hydroxide (Milk Of Magnesia 30 Ml Oral.Susp) 30 ml PO DAILY PRN PRN Reason: Constipation Melatonin (Melatonin 3 Mg Tablet) 6 mg PO BEDTIME PRN PRN Reason: Insomnia Olanzapine (Olanzapine 5 Mg Tablet) 5 mg PO BID [facility] Last Admin: 08/25/23 11:28 Dose: 5 mg Olanzapine (Olanzapine 10 Mg Vial) 5 mg IM BID PRN PRN Reason: IF REFUSES PO OLANZAPINE DOSE Ondansetron HCl (Ondansetron Hcl 4 Mg/2 Ml Vial) 4 mg IVPUSH Q8H PRN PRN Reason: Nausea and Vomiting Sodium Chloride (0.9 % Sodium Chloride Flush 3 Ml Syringe) 3 ml IVFLUSH QSHIFT [facility] Last Admin: 08/25/23 07:12 Dose: Not Given Allergies Allergies Allergy/AdvReac Type Severity Reaction Status Date / Time Unable to Assess Allergy Verified 08/23/23 12:27 Assessment & Plan Assessment & Plan (1) Severe manic bipolar 1 disorder with psychotic behavior: Status: Acute Code(s): F31.2 - Bipolar disorder, current episode manic severe with psychotic features Plan Mrs. Johnson is a 43 year-old woman who has had episodes of psychosis, rastafarian preoccupation with some degree of catatonia like symptoms such as mutism, negativism, blank stare since 2010. It appears she has been largely untreated but progressively getting worse to the point that now due to lack of oral intake her sodium is dangerously high. Pt does not show capacity to make medical decisions as underlying delusions and psychosis are affecting her judgment and insight. Discussed with hospitalist and her initiation of ativan 1mg po TID for catatonia, olanzapine 5mg po TID for psychosis. continue IV fluids and medical treatment. Pt should be on sect 12a- can't leave against medical advise and once clear should be assessed for inpatient psychiatric admission. PLAN 08/24- increase olanzapine to 10mg po BID. less catatonia, but still present, will continue ativan at current dose, but will adjust gradually. It does seem to help pt talk more and engage more although still severely psychotic and delusional. collateral information gathered from her parents with assistance of [employer] admin. Total time managing care of this patient today ___35_ minutes. Patient educated on: diagnosis, medication risk/benefits and medical condition Informed Consent: does not understand
[2023-08-25 15:44] VITALS: BP 136/80; PULSE 98; RESP 18; TEMP 36.7; O2SAT 96
[2023-08-25 16:23] LABS: Anion Gap 13 (12-20); Blood Urea Nitrogen 9 mg/dL (9-16); Calcium 9.1 mg/dL (8.4-10.2); Carbon Dioxide 26 mmol/L (22-29); Chloride 111 mmol/L (96-108); Creatinine Clr Calc Pharmacy 99.4; Estimated Glomerular Filt Rate > 60; Glucose Random 88 mg/dL (60-115); Potassium 3.9 mmol/L (3.3-5.1); Sodium 146 mmol/L (135-145)
[2023-08-25 19:32] VITALS: BP 119/88; PULSE 102; RESP 16; TEMP 36.2; O2SAT 97
[2023-08-25] MEDS: OLANZapine 10 MG VIAL 5 MG IM (20:27)
[2023-08-25] MEDS: LORazepam 2 MG/ML VIAL 1 MG IM (20:28)
--- NOTE | 2023-08-25 20:29 | MHC.PIE ---
p; po med administration attempted multiple times with pt spitting out meds into trash bin after numerous warning not to spit out med and numerous warning that if she spit out meds, prn IM will be given. i; prn ativen IM and prn xyprexa IM given with multiple staff needed to hold pt e; pt in room, one to one sitter at bed side, will cont to monitor
[2023-08-26 04:00] VITALS: RESP 16
[2023-08-26] MEDS: OLANZapine 10 MG TABLET PO (08:22)
[2023-08-26] MEDS: LORazepam 1 MG TABLET PO ×2 (08:22→14:44)
[2023-08-26 08:50] LABS: Anion Gap 14 (12-20); Blood Urea Nitrogen 12 mg/dL (9-16); Carbon Dioxide 27 mmol/L (22-29); Chloride 109 mmol/L (96-108); Creatinine Clr Calc Pharmacy 100.9; Estimated Glomerular Filt Rate > 60; Glucose Random 94 mg/dL (60-115); Potassium 3.5 mmol/L (3.3-5.1); Sodium 146 mmol/L (135-145)
[2023-08-26 08:56] VITALS: BP 141/77; PULSE 105; RESP 12; TEMP 37; O2SAT 94
--- NOTE | 2023-08-26 11:32 | HO.PM.IMPN ---
Subjective Subjective Date of Service: 08/26/23 Interval History: f/u on paranoia, psychosis, refusing to eat or drink and sodium has been up She is been taking meds sometimes drinking water and shakes.. 2 old pills were found under blankets, probably from last night Physical Exam Vital Signs: Vital Signs: Last Vital Signs Temp 98.6 F 08/26/23 08:56 Pulse 105 H 08/26/23 08:56 Resp 12 08/26/23 08:56 BP 141/77 H 08/26/23 08:56 Pulse Ox 94 08/26/23 08:56 O2 Del Method Room Air 08/26/23 08:56 BMI result Body Mass Index 24.1 General: Alert, no distress Resp: CTA bilateral CVS: S1,S2,RRR GI: +BS, NT, no distention Skin: No rash Neuro: motor grossly intact Psych: appropriate affect Objective Data Active Medications Acetaminophen (Acetaminophen 325 Mg Tablet) 650 mg PO Q6H PRN PRN Reason: Pain, Mild (Pain Scale 1-3), fever or headache Calcium Carbonate (Calcium Carbonate 750 Mg Tab.Chew) 750 mg PO Q4H PRN PRN Reason: Heartburn Enoxaparin Sodium (Enoxaparin Sodium 40 Mg/0.4 Ml Syringe) 40 mg SUBCUT Q24H [facility] Last Admin: 08/26/23 08:25 Dose: Not Given Documented By: LEVI Non-Admin Reason: Patient Refused Lorazepam (Lorazepam 1 Mg Tablet) 1 mg PO TID [facility] Last Admin: 08/26/23 08:22 Dose: 1 mg Documented By: LEVI Lorazepam (Lorazepam 2 Mg/Ml Vial) 1 mg IM TID PRN PRN Reason: IF REFUSES PO LORAZEPAM DOSE Last Admin: 08/25/23 20:28 Dose: 1 mg Documented By: TORIE Comments: after multiple po med administration, pt still spit out med, IM given Magnesium Hydroxide (Milk Of Magnesia 30 Ml Oral.Susp) 30 ml PO DAILY PRN PRN Reason: Constipation Melatonin (Melatonin 3 Mg Tablet) 6 mg PO BEDTIME PRN PRN Reason: Insomnia Olanzapine (Olanzapine 10 Mg Tablet) 10 mg PO BID [facility] Last Admin: 08/26/23 08:22 Dose: 10 mg Documented By: LEVI Olanzapine (Olanzapine 10 Mg Vial) 5 mg IM BID PRN PRN Reason: IF REFUSES PO OLANZAPINE DOSE Last Admin: 08/25/23 20:27 Dose: 5 mg Documented By: TORIE Comments: after multiple attempts for po administration, pt spit out meds, prn IM given Ondansetron HCl (Ondansetron Hcl 4 Mg/2 Ml Vial) 4 mg IVPUSH Q8H PRN PRN Reason: Nausea and Vomiting Sodium Chloride (0.9 % Sodium Chloride Flush 3 Ml Syringe) 3 ml IVFLUSH QSHIFT [facility] Last Admin: 08/26/23 08:24 Dose: Not Given Documented By: LEVI Non-Admin Reason: No Access Labs 08/24/23 05:58 08/26/23 08:16 Labs: Laboratory Results - last 24 hr 08/25/23 08/26/23 15:49 08:16 Hold Purple Top SEE NOTE Anion Gap 13 14 Estim Creat Clear Calc 99.4 100.9 Estimated GFR > 60 > 60 Random Glucose 88 94 Calcium 9.1 9.0 Microbiology Microbiology Results: Microbiology 08/23/23 22:44 Urine Culture - Final Urine clean catch - Clean Catch Midstream Assessment and Plan (1) Severe manic bipolar 1 disorder with psychotic behavior: Status: Acute (2) Acute hypernatremia: Status: Acute (3) Acute psychosis: Status: Acute Plan 43-year-old female who was sent from [facility] facility with increased paranoia and refusing to eat or drink and found to have hypernatremia. Acute hypernatremia due to free water deficit from refusing to eat/drink. Got some IVF 2 days ago, and has been drinking some water and ensure. Sodium level stable 146 3 times in row Hypokalemia--repleted and resolved. Paranoia with hallucination: She is refusing to take Med. Continue Olanzapine and Ativan as recommended by Psych, PO and if refuses IM At this point, she is medically clear and can go to Psych DVT prophylaxis: Lovenox Full code Need for inpatient:management of hypernatremia in setting of not eating or drinking in setting of acute Psychosis Quality Stroke Does the patient have a stroke diagnosis?: No VTE Prior VTE?: No VTE Risk Level:: Medical - moderate - high VTE Device Contraindication: Treatment Not Indicated VTE Drug Contraindication: N/A - Med Ordered
--- NOTE | 2023-08-26 13:39 | P.PNIM_ITS ---
Subjective Subjective Date of Service: 08/26/23 Physical Exam 2 Vital Signs: Vital Signs: Last Vital Signs Temp 98.6 F 08/26/23 08:56 Pulse 105 H 08/26/23 08:56 Resp 12 08/26/23 08:56 BP 141/77 H 08/26/23 08:56 Pulse Ox 94 08/26/23 08:56 O2 Del Method Room Air 08/26/23 08:56 BMI result Body Mass Index 24.1 Objective Data Active Medications Acetaminophen (Acetaminophen 325 Mg Tablet) 650 mg PO Q6H PRN PRN Reason: Pain, Mild (Pain Scale 1-3), fever or headache Calcium Carbonate (Calcium Carbonate 750 Mg Tab.Chew) 750 mg PO Q4H PRN PRN Reason: Heartburn Enoxaparin Sodium (Enoxaparin Sodium 40 Mg/0.4 Ml Syringe) 40 mg SUBCUT Q24H [facility] Last Admin: 08/26/23 08:25 Dose: Not Given Documented By: LEVI Non-Admin Reason: Patient Refused Lorazepam (Lorazepam 1 Mg Tablet) 1 mg PO TID [facility] Last Admin: 08/26/23 08:22 Dose: 1 mg Documented By: LEVI Lorazepam (Lorazepam 2 Mg/Ml Vial) 1 mg IM TID PRN PRN Reason: IF REFUSES PO LORAZEPAM DOSE Last Admin: 08/25/23 20:28 Dose: 1 mg Documented By: TORIE Comments: after multiple po med administration, pt still spit out med, IM given Magnesium Hydroxide (Milk Of Magnesia 30 Ml Oral.Susp) 30 ml PO DAILY PRN PRN Reason: Constipation Melatonin (Melatonin 3 Mg Tablet) 6 mg PO BEDTIME PRN PRN Reason: Insomnia Olanzapine (Olanzapine 10 Mg Tablet) 10 mg PO BID [facility] Last Admin: 08/26/23 08:22 Dose: 10 mg Documented By: LEVI Olanzapine (Olanzapine 10 Mg Vial) 5 mg IM BID PRN PRN Reason: IF REFUSES PO OLANZAPINE DOSE Last Admin: 08/25/23 20:27 Dose: 5 mg Documented By: TORIE Comments: after multiple attempts for po administration, pt spit out meds, prn IM given Ondansetron HCl (Ondansetron Hcl 4 Mg/2 Ml Vial) 4 mg IVPUSH Q8H PRN PRN Reason: Nausea and Vomiting Sodium Chloride (0.9 % Sodium Chloride Flush 3 Ml Syringe) 3 ml IVFLUSH QSHIFT [facility] Last Admin: 08/26/23 08:24 Dose: Not Given Documented By: LEVI Non-Admin Reason: No Access Labs 08/24/23 05:58 08/26/23 08:16 Labs: Laboratory Results - last 24 hr 08/25/23 08/26/23 15:49 08:16 Hold Purple Top SEE NOTE Anion Gap 13 14 Estim Creat Clear Calc 99.4 100.9 Estimated GFR > 60 > 60 Random Glucose 88 94 Calcium 9.1 9.0 Microbiology Microbiology Results: Microbiology 08/23/23 22:44 Urine Culture - Final Urine clean catch - Clean Catch Midstream Quality Stroke Does the patient have a stroke diagnosis?: No VTE Prior VTE?: No VTE Risk Level:: Medical - moderate - high VTE Device Contraindication: Treatment Not Indicated VTE Drug Contraindication: N/A - Med Ordered
[2023-08-26 14:33] LABS: Estimated Average Glucose 105 mg/dL; Hemoglobin A1c % 5.3 % (<6.0)
--- NOTE | 2023-08-26 14:53 | MHC.CARE ---
Patient was evaluated by the CARE Team, she will require an inpatient psychiatric admission. Dr. Salmeron updated.
--- NOTE | 2023-08-26 16:05 | PC.NURSE ---
10:00 donna found two pills in a paper towel in 380s bed after she went to the bathroom. MD and myself were present when took zyprexa and ativan. Pt appeared to have swallowed pills. I instructed donna to cont to monitor and stated that never saw her spit pills out. I inspected if they were dry or wet. Which they were dry. if they were from today sitting in her mouth they should be wet. Spoke w MD Salmeron and believe these pills were from another occasion. No further action taken. @1500 Pt agreed to take PO ativan after spitting out. Placed in Ice cream and pt swallowed pill. Pt states she wants to return to [facility]. I notified and he stated care team will look into if they will take pt back.
[2023-08-26 16:38] VITALS: BP 131/80; PULSE 106; RESP 18; TEMP 36.1; O2SAT 97
[2023-08-26] MEDS: OLANZapine 10 MG VIAL 5 MG IM (20:19)
[2023-08-26] MEDS: LORazepam 2 MG/ML VIAL 1 MG IM (20:21)
--- NOTE | 2023-08-26 20:22 | MHC.PIE ---
p; pt refusing to take po med once again tonight, pt educated and re educated on need to taking po med or prn IM injections will be given, pt reports i can take medicine but then reports not taking any medicine refusing to open mouth. i; pt re oriented and re educated numerous times with no result. PRN IM injections given with 2 staff needed to safety. e; will cont to monitor
--- NOTE | 2023-08-27 | ECG_ITS ---
Test Reason : psychosis Blood Pressure : / mmHG Vent. Rate : 099 BPM Atrial Rate : 099 BPM P-R Int : 132 ms QRS Dur : 080 ms QT Int : 330 ms P-R-T Axes : 031 000 030 degrees QTc Int : 423 ms Normal sinus rhythm Normal ECG No previous ECGs available Referred By: Avery Salmeron Electronically Signed By:PHIL YUAN
[2023-08-27 06:51] LABS: Anion Gap 18 (12-20); Blood Urea Nitrogen 14 mg/dL (9-16); Calcium 9.1 mg/dL (8.4-10.2); Carbon Dioxide 22 mmol/L (22-29); Chloride 109 mmol/L (96-108); Estimated Glomerular Filt Rate > 60; Glucose Random 82 mg/dL (60-115); Potassium 3.9 mmol/L (3.3-5.1); Sodium 145 mmol/L (135-145)
[2023-08-27 07:30] LABS: Magnesium 2.6 mg/dL (1.6-2.6); Phosphorus 2.9 mg/dL (2.7-4.5)
[2023-08-27 07:37] VITALS: BP 124/72; PULSE 94; RESP 14; TEMP 36.2; O2SAT 96
[2023-08-27] MEDS: OLANZapine 10 MG TABLET PO (08:47)
[2023-08-27] MEDS: LORazepam 1 MG TABLET PO (08:48)
--- NOTE | 2023-08-27 09:21 | PM.DS ---
DS: Providers Provider Date of Service: 08/27/23 Date of admission: 08/24/23 02:24 Primary care physician: Unknown Physician Consults: 08/23/23 11:32 Consult to Care Team Stat Comment: Reason for consultation: paranoia acute psychosis 08/24/23 02:26 Consult to Psychiatry Stat Consulting Provider: Psych Covering Reason for consultation: Paranoia, dehydration, hypernatremia 08/24/23 23:33 Consult to Nephrology Routine Consulting Provider: [facility] Reason for consultation: hypernatremia 08/26/23 11:16 Consult to Care Team Routine Comment: Reason for consultation: Psychosis, medically ready to discharge DS: Diagnosis Discharge Diagnosis (1) Severe manic bipolar 1 disorder with psychotic behavior: Status: Acute (2) Acute hypernatremia: Status: Acute (3) Acute psychosis: Status: Acute DS: Summary Time Attestation Discharge Coordination Time (in mins): admission hpi Chief Complaint: Paranoia This is a 43-year-old female who was sent from [facility] with increased paranoia and refusing to eat or drink for the past 4 days. Patient does not want to talk at the time of my evaluation. She is refusing to answer questions and states he wants to be left alone. Earlier patient was found to be hallucinating in the ER. Patient kept on repeating that she was talking to God. Unable to obtain review of systems. In the emergency department, sodium was found to be low and she was resuscitated with IV isotonic crystalloids. No improvement in serum sodium after 3 L of isotonic fluids. Hospitalist team consulted for admission. hospital course: The patient was admitted to the medical floor due to hypernatremia and refusal to drink or eat. She was initially resistant to hydration and nutrition. After receiving IV fluids for less than 12 hours, her sodium levels significantly decreased. Subsequently, she began consuming small amounts of water and Ensure, sufficient to maintain sodium and other electrolytes within normal ranges. For psychiatric management, she has been prescribed Olanzapine 10 mg orally twice daily and 5 mg IM if she refuses oral intake. Additionally, Ativan 1 mg has been prescribed three times a day, either PO or IM if she refuses to take it orally. It should be noted that she has a tendency to spit out medications, necessitating supervision to ensure that the pills are not left in her mouth and spat out later. She was under Section 12A during her medical hospitalization. An ECG performed today was normal. Quality: Safe Use of Opioids Does Pt have an Active Cancer Diagnosis on the Problem List?: No Quality: Stroke Does the patient have a stroke diagnosis?: No Physical Exam Vital Signs: Vital Signs: Last Vital Signs Temp 97.1 F 08/27/23 07:37 Pulse 94 08/27/23 07:37 Resp 14 08/27/23 07:37 BP 124/72 08/27/23 07:37 Pulse Ox 96 08/27/23 07:37 O2 Del Method Room Air 08/27/23 07:37 BMI result Body Mass Index 24.1 DS: Data Data Completed and Pending Labs on day of discharge: Laboratory Results - last 24 hr 08/26/23 08/27/23 06:16 05:47 Hold Purple Top SEE NOTE Sodium 145 Potassium 3.9 Chloride 109 H Carbon Dioxide 22 Anion Gap 18 BUN 14 Creatinine 0.71 Estim Creat Clear Calc 91.0 Estimated GFR > 60 Random Glucose 82 Estimat Average Glucose 105 Hemoglobin A1c % 5.3 Calcium 9.1 Phosphorus 2.9 Magnesium 2.6 Discharge Plan Discharge Patient Disposition: Xfer Psychiatric Hosp Discharge Diagnosis: Hypernatremia, Dehydration, Manic Bipolar with acute Psychosis Referrals: Physician,Unknown J [Primary Care Provider] - 1 Week Discharge Medications: Continued sennosides 8.6 mg Tablet 17.2 mg PO DAILY PRN (Reason: Constipation) acetaminophen 325 mg Tablet 650 mg PO Q4H PRN (Reason: Pain) trazodone 50 mg Tablet 50 mg PO BEDTIME PRN (Reason: Sleep) olanzapine 10 mg Tablet 10 mg PO BEDTIME melatonin 3 mg Tablet 3 mg PO BEDTIME PRN (Reason: Sleep) ibuprofen 400 mg Tablet 400 mg PO Q8H PRN (Reason: body ache ) bismuth subsalicylate 262 mg Tablet,Chewable 1 tab PO QID PRN (Reason: Nausea And Vomiting) calcium carbonate 500 mg calcium (1,250 mg) Tablet,Chewable 500 mg PO Q4H PRN (Reason: Heartburn) lorazepam 1 mg Tablet 1 mg PO BID PRN (Reason: Anxiety) olanzapine 5 mg Tablet,Disintegrating 5 mg PO BID PRN (Reason: agitation/psychosis) hydroxyzine pamoate 25 mg Capsule 25 mg PO TID PRN (Reason: anxity) benzocaine-menthol 15-3.6 mg Lozenge 1 madeline MUCOUS MEMBRANE Q2H PRN (Reason: Sore Throat) Diet: Advance to usual diet Activity on Discharge: As tolerated Stand Alone Forms: Patient Portal Discharge page Print Language: [place] Islander Care Plan Goals: Recovery from acute Psychicosis and Bipolar with manic phase Health Concerns: Bipolar with leif Acute Psychosis
--- NOTE | 2023-08-27 11:31 | MHC.CM.PN ---
PT HAS BEEN MEDICALLY CLEARED SHE WAS SEEN BY CARE TEAM AND DEEMED APPROPRIATE FOR IPLOC PT WILL DC TO INPATIENT PSYCH TREATMENT PENDING BED SEARCH
[2023-08-27 12:06] LABS: Amphetamine Screen Urine Not Detected (Not Detect); Barbiturates, Urine Not Detected (Not Detect); Benzodiazepines Screen Urine Not Detected (Not Detect); Buprenorphine Scr Not Detected (Not Detect); Cannabinoid Screen Urine Not Detected (Not Detect); Cocaine Screen Urine Not Detected (Not Detect); Fentanyl, urine Not Detected (Not Detect); Methadone Screen, Urine Not Detected (Not Detect); Opiate Screen Urine Not Detected (Not Detect); Oxycodone Screen Urine Not Detected (Not Detect); Phencyclidine Screen Urine Not Detected (Not Detect)
== END 2023-08-27 13:16 | DRG 641 ==
LOC: HO.ED 08-24 02:28 → HO.EDOVER 08-24 02:41 → HO.S3 08-24 07:44
PROVIDERS: Nurse Practitioner Family; Physician Assistant; Admitting Provider Student in an Organized Health Care Education/Training Program; Emergency Provider Emergency Medicine; Visit Provider Internal Medicine
DX: E87.0 Hyperosmolality and hypernatremia (principal); F31.2 Bipolar disorder, current episode manic severe with psychotic features; E86.0 Dehydration; E87.6 Hypokalemia; Z79.899 Other long term (current) drug therapy
CPT/HCPCS: 36415; 80048; 80051; 80053; 80307; 81001; 81025; 82550; 83036; 83735; 83930; 84100; 85025; 87086; 93005; 99285; J1200; J2060; J2359; S9485

== ENCOUNTER 2023-08-24 02:24 | Outpatient (BNV) | payer OTHER, SELFPAY | END 2023-08-27 10:38 | PROVIDERS: Admitting Provider Student in an Organized Health Care Education/Training Program; Emergency Provider Emergency Medicine; Visit Provider Internal Medicine | DX: F29 Unspecified psychosis not due to a substance or known physiological condition (principal) | CPT/HCPCS: 93010 ==

== ENCOUNTER → 2023-08-24 02:24 | Outpatient (BNV) | payer OTHER, SELFPAY | PROVIDERS: Admitting Provider Student in an Organized Health Care Education/Training Program; Emergency Provider Emergency Medicine; Visit Provider Social Worker | DX: F31.2 Bipolar disorder, current episode manic severe with psychotic features (principal) | CPT/HCPCS: 99232; 99233 ==

== ENCOUNTER → 2023-08-24 02:24 | Outpatient (BNV) | payer OTHER, SELFPAY | PROVIDERS: Admitting Provider Student in an Organized Health Care Education/Training Program; Emergency Provider Emergency Medicine; Visit Provider Internal Medicine Hypertension Specialist | DX: E87.0 Hyperosmolality and hypernatremia (principal) | CPT/HCPCS: 99222 ==

== ENCOUNTER → 2023-08-24 02:24 | Outpatient (BNV) | payer OTHER, SELFPAY | PROVIDERS: Admitting Provider Student in an Organized Health Care Education/Training Program; Emergency Provider Emergency Medicine; Visit Provider Student in an Organized Health Care Education/Training Program | DX: F31.2 Bipolar disorder, current episode manic severe with psychotic features (principal); E87.0 Hyperosmolality and hypernatremia; F23 Brief psychotic disorder | CPT/HCPCS: 99222; 99232; 99239; 99499 ==

== ENCOUNTER 2023-08-27 13:18 | Inpatient (IN) | payer OTHER, SELFPAY ==
--- NOTE | ~2023-08-27 | XR_ITS ---
EXAMINATION: XR CHEST CLINICAL INFORMATION: not eating or drinking COMPARISON: None available. TECHNIQUE: Frontal view of the chest was obtained. 4:25 PM FINDINGS: No significant abnormality is noted involving the heart, lungs, mediastinum, bony thorax or soft tissues. XR/XR chest 1V IMPRESSION: Unremarkable examination.
[2023-08-27 13:47] VITALS: BP 119/71; PULSE 107; RESP 16; TEMP 36.7; O2SAT 96
[2023-08-27 14:39] VITALS: BMI 22.2
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
[2023-08-27 20:00] VITALS: RESP 18
[2023-08-28 08:00] VITALS: BP 120/74; PULSE 83; RESP 16; TEMP 36.4; O2SAT 97
--- NOTE | 2023-08-28 16:01 | HO.PSYCHPN ---
Subjective Subjective Date of Service: 08/28/23 Reason For Visit: crisis Interim History: only slightly slows her pace as MD greats her in hallway and asks to meet with her. per staff, on 12b. Mental Status Exam Mental Status Exam Narrative: adequately dressed and groomed. pacing the beach, eyes down. not cooperative. mute. Diagnostics Vital Signs (24Hr): Vital Signs - 24 hr 08/27/23 20:00 08/28/23 08:00 Temperature 97.6 F Pulse Rate 83 Respiratory Rate 18 16 Blood Pressure 120/74 Pulse Oximetry 97 Oxygen Delivery Method Room Air BMI result Body Mass Index 22.2 Medications Medications Current Medications Acetaminophen (Acetaminophen 325 Mg Tablet) 650 mg PO Q6H PRN PRN Reason: Headache/Pain Mild Scale (1-3) Al Hydroxide/Mg Hydroxide (Magnesium Hydrox/Alum Hydrox 30 Ml Oral.Susp) 30 ml PO Q6H PRN PRN Reason: Heartburn/Nausea Calcium Carbonate (Calcium Carbonate 750 Mg Tab.Chew) 750 mg PO Q4H PRN PRN Reason: Heartburn Hydroxyzine HCl (Hydroxyzine Hcl 25 Mg Tablet) 25 mg PO Q6H PRN PRN Reason: Anxiety Ibuprofen (Ibuprofen 400 Mg Tablet) 400 mg PO Q8H PRN PRN Reason: body ache Lorazepam (Lorazepam 1 Mg Tablet) 1 mg PO BID PRN PRN Reason: Anxiety Magnesium Hydroxide (Milk Of Magnesia 30 Ml Oral.Susp) 30 ml PO DAILY PRN PRN Reason: Constipation Melatonin (Melatonin 3 Mg Tablet) 3 mg PO BEDTIME PRN PRN Reason: Sleep Nicotine Polacrilex (Nicotine Polacrilex 2 Mg Gum) 4 mg BUCCAL Q2H PRN PRN Reason: Nicotine Cravings Olanzapine (Olanzapine 5 Mg Tablet) 5 mg PO BID PRN PRN Reason: agitation/psychosis Olanzapine (Olanzapine Odt 10 Mg Tab.Rapdis) 10 mg TRANSLINGU BEDTIME MAYA Last Admin: 08/27/23 20:39 Dose: Not Given Trazodone HCl (Trazodone Hcl 50 Mg Tablet) 50 mg PO BEDTIME MRX1 PRN PRN Reason: Insomnia Allergies Allergies Allergy/AdvReac Type Severity Reaction Status Date / Time Unable to Assess Allergy Verified 08/23/23 12:27 Assessment & Plan Assessment & Plan (1) Acute psychosis: Status: Acute Code(s): F23 - Brief psychotic disorder Plan Patient is a 43 year old female with unspecific psychotic d/o who came to [facility] via ambulance from [facility] for medical treatment after refusing to eat or drink for several days. Plan: 12B 15 minute safety checks Continue orders from medical floor encourage medication compliance encourage groups obtain collateral referral to outpatient providers discharge planning 08/27: mute, not cooperative with interview. continue current mgmt. Reason for continued inpatient stay Substantial Risk for: inability to function and med/psych decompensation Time Spent With Patient Time: Total time managing care of this patient today ____ minutes.
[2023-08-28 20:00] VITALS: BP 119/74; PULSE 116; RESP 18; TEMP 36.4; O2SAT 98
[2023-08-29 08:00] VITALS: BP 113/83; PULSE 92; RESP 14; TEMP 36.4; O2SAT 98
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
[2023-08-29 20:00] VITALS: BP 116/76; PULSE 96; RESP 16; TEMP 36.8; O2SAT 98
[2023-08-30 08:00] VITALS: BP 143/84; PULSE 102; TEMP 36.6; O2SAT 97
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
[2023-08-30 13:19] LABS: MANUAL DIFF FLAG NO
[2023-08-30 13:23] LABS: Basophils Percent Auto 0.7 % (0-2); Eosinophils Percent Auto 0.7 % (0-4); Hematocrit 48.3 % (37.0-47.0); Hemoglobin 15.5 g/dl (12.0-16.0); Imm Gran Abs Auto 0.01 X10*3/uL (0.00-0.03); Imm Gran Pct Auto 0.2 % (0.0-0.4); Lymphocytes Absolute Auto 1.4 X10*3/uL (1.2-4.9); Lymphocytes Percent Auto 25.4 % (20-40); Mean Corpuscular HGB Conc 32.1 g/dl (31.0-35.0); Mean Corpuscular Hemoglobin 28.9 pg (27.0-33.0); Mean Corpuscular Volume 89.9 fL (80.0-98.0); Mean Platelet Volume 11.9 fL (9.4-12.3); Monocytes Absolute Auto 0.5 X10*3/uL (0.1-1.2); Neutrophils Absolute Auto 3.4 x10*3/uL (2.0-8.3); Platelet Count 208 X10*3/uL (160-400); Red Blood Count 5.37 X10*6/uL (4.20-5.50); Red Cell Distribution Width 13.6 % (11.0-16.0); White Blood Count 5.4 X10*3/uL (4.8-10.8)
[2023-08-30 13:28] LABS: Ammonia 30 umol/L (13-55)
[2023-08-30 13:50] LABS: Alanine Aminotransferase 108 U/L (0-31); Albumin Level 4.8 g/dL (3.5-5.0); Alkaline Phosphatase 55 U/L (39-117); Anion Gap 22 (12-20); Aspartate Amino Transferase 79 U/L (5-31); Bilirubin Direct 0.6 mg/dL (0.0-0.5); Bilirubin Total 1.2 mg/dL (0.0-1.0); Blood Urea Nitrogen 13 mg/dL (9-16); Calcium 10.2 mg/dL (8.4-10.2); Carbon Dioxide 17 mmol/L (22-29); Chloride 111 mmol/L (96-108); Creatinine Clr Calc Pharmacy 79.1; Estimated Glomerular Filt Rate > 60; Glucose Random 84 mg/dL (60-115); Potassium 4.4 mmol/L (3.3-5.1); Sodium 146 mmol/L (135-145); Total Protein 8.5 g/dL (6.5-8.0)
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
--- NOTE | 2023-08-30 15:03 | P.EN_ITS ---
Event Note Date of Service: 08/30/23 Event Note: Pt admitted to adult psychiatry with consult placed to hospitalist service for evaluation of pt not eating or drinking. The patient was just discharged from medical floors on 08/26 due to patient not eating or drinking with hypernatremia. On admission, sodium had been 158, improved to 145 on day of discharge. Was treated with IVF and discharged to psych. Pt reportedly still not eating or drinking much. Renal function remains stable, very mild hypernatremia 146. On exam, pt is drinking a cup of ice water. States she was on a restorationist fast but knows she needs to stop this. She is meeting with restorationist staff on my exam. She has no complaints including abd pain, n/v/d, urinary symptoms, fevers, chills, cough, sob, lightheadedness, syncope, chest pain. Vitals are significant for tachycardia, likely dur to dehydration. Renal function baseline. Sodium 146 and slight bump in LFTs, due to dehdyration. Will r/o infection with UA/UC, CXR. Give 1 L IVF. Encourage PO intake. Would monitor BMP daily. For any CHRIS, significant lyte abnormality, including Na >150, please do not hesitate to reach out to hospitalist service. Time Spent With Patient Time: Total time managing care of this patient today ____ minutes.
[2023-08-30 15:14] VITALS: BP 124/74; PULSE 105; O2SAT 97
[2023-08-30 15:15] VITALS: BP 115/79; BP 117/81; PULSE 102; PULSE 90; O2SAT 100
[2023-08-30 17:03] LABS: Influenza A PCR NEGATIVE (Negative); Influenza B PCR NEGATIVE (Negative); Resp Syncy Virus RNA Qual PCR NEGATIVE (Negative); SARS COV2 PCR INHOUSE NEGATIVE (Negative)
[2023-08-30] MEDS: OLANZapine ODT 10 MG TAB.RAPDIS TRANSLINGU (17:05)
--- NOTE | 2023-08-30 17:06 | PC.NURSE ---
Following discussion with patient and provider Larisa Reyna APRN may administer Olanzapine at this time.
[2023-08-30 19:02] LABS: Appearance Urine Clear; Color Urine Dark Yellow; Glucose Urine UA Negative (Negative); Leukocyte Esterase Urine Trace (Negative); Nitrite Urine Negative (Negative); PH 5.5 (5.0-9.0); Specific Gravity - Urine 1.025 (1.005-1.025); UMIC TRIGGER UACC YES; Urine Blood Trace (Negative); Urine Ketones 80 mg/dL (Negative); Urine Protein 30 (1+) mg/dL (Neg-Trace)
[2023-08-30 19:05] LABS: Bacteria Urine 4+ (None Seen); WBC Urine 0-5 /HPF (0-5)
[2023-08-30 20:30] VITALS: BP 123/68; PULSE 105; RESP 18; TEMP 36.6; O2SAT 99
[2023-08-30] MEDS: Sulfamethox/Trimeth 800/160 TABLET 1 TAB PO (23:31)
[2023-08-31 07:25] VITALS: BP 118/74; PULSE 94; RESP 16; TEMP 36.8; O2SAT 99
[2023-08-31] MEDS: OLANZapine ODT 10 MG TAB.RAPDIS TRANSLINGU (08:54)
[2023-08-31] MEDS: Sulfamethox/Trimeth 800/160 TABLET 1 TAB PO ×2 (08:54→21:36)
[2023-08-31 09:00] LABS: Anion Gap 18 (12-20); Blood Urea Nitrogen 11 mg/dL (9-16); Calcium 9.7 mg/dL (8.4-10.2); Carbon Dioxide 20 mmol/L (22-29); Chloride 109 mmol/L (96-108); Estimated Glomerular Filt Rate > 60; Glucose Random 94 mg/dL (60-115); Potassium 3.5 mmol/L (3.3-5.1); Sodium 143 mmol/L (135-145)
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
[2023-08-31 20:00] VITALS: BP 132/78; PULSE 95; RESP 16; TEMP 36.6; O2SAT 100
[2023-09-01 07:39] VITALS: BP 118/70; PULSE 89; RESP 14; TEMP 36.9; O2SAT 98
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
[2023-09-01 09:13] LABS: Anion Gap 13 (12-20); Blood Urea Nitrogen 6 mg/dL (9-16); Calcium 9.2 mg/dL (8.4-10.2); Carbon Dioxide 24 mmol/L (22-29); Chloride 104 mmol/L (96-108); Estimated Glomerular Filt Rate > 60; Glucose Random 146 mg/dL (60-115); Potassium 3.1 mmol/L (3.3-5.1); Sodium 138 mmol/L (135-145)
[2023-09-01] MEDS: OLANZapine ODT 10 MG TAB.RAPDIS TRANSLINGU (09:43)
[2023-09-01] MEDS: Sulfamethox/Trimeth 800/160 TABLET 1 TAB PO ×2 (09:43→21:50)
--- NOTE | 2023-09-01 13:57 | MHC.CLN ---
F/U VISITED WITH PATIENT IN HER ROOM. STATED THAT IS NO LONGER FASTING. DRINKING WATER AND EATING SOME FOODS. INDICATED THAT SHE IS EATING SMALLER AMOUNTS. IV FLUIDS NOT GIVEN ON 08/29. STAFF TO CONTINUE TO MONITOR INTAKE AND LABS.
[2023-09-01 19:40] VITALS: BP 107/69; PULSE 90; RESP 16; TEMP 36.8; O2SAT 99
[2023-09-02 07:40] VITALS: BP 107/68; PULSE 98; RESP 12; TEMP 36.9; O2SAT 97
[2023-09-02 09:00] LABS: Anion Gap 12 (12-20); Blood Urea Nitrogen 3 mg/dL (9-16); Calcium 9.4 mg/dL (8.4-10.2); Carbon Dioxide 28 mmol/L (22-29); Chloride 102 mmol/L (96-108); Creatinine Clr Calc Pharmacy 90.8; Estimated Glomerular Filt Rate > 60; Glucose Random 96 mg/dL (60-115); Potassium 3.1 mmol/L (3.3-5.1); Sodium 139 mmol/L (135-145)
[2023-09-02] MEDS: Sulfamethox/Trimeth 800/160 TABLET 1 TAB PO ×2 (09:48→21:51)
[2023-09-02] MEDS: OLANZapine ODT 10 MG TAB.RAPDIS TRANSLINGU (09:49)
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
[2023-09-02 20:26] VITALS: BP 96/67; PULSE 103; RESP 16; TEMP 36.9; O2SAT 97
[2023-09-03 07:34] VITALS: BP 112/64; PULSE 94; RESP 14; TEMP 36.7; O2SAT 98
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
[2023-09-03] MEDS: Sulfamethox/Trimeth 800/160 TABLET 1 TAB PO ×2 (09:40→21:31)
[2023-09-03] MEDS: OLANZapine ODT 10 MG TAB.RAPDIS 20 MG TRANSLINGU (09:40)
[2023-09-03 20:00] VITALS: BP 110/68; PULSE 94; RESP 16; TEMP 36.9; O2SAT 99
[2023-09-04 08:00] VITALS: BP 117/71; PULSE 112; RESP 18; TEMP 36.9; O2SAT 96
[2023-09-04] MEDS: Sulfamethox/Trimeth 800/160 TABLET 1 TAB PO ×2 (09:01→20:52)
[2023-09-04] MEDS: OLANZapine ODT 10 MG TAB.RAPDIS 20 MG TRANSLINGU (09:01)
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
[2023-09-04 20:00] VITALS: BP 106/61; PULSE 119; RESP 18; TEMP 37.4; O2SAT 97
[2023-09-05 07:30] VITALS: BP 121/63; PULSE 105; RESP 14; TEMP 37.4; O2SAT 97
[2023-09-05] MEDS: OLANZapine ODT 10 MG TAB.RAPDIS 20 MG TRANSLINGU (08:47)
[2023-09-05] MEDS: Sulfamethox/Trimeth 800/160 TABLET 1 TAB PO ×2 (08:47→20:25)
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
[2023-09-05 19:35] VITALS: BP 104/69; PULSE 124; RESP 16; TEMP 36.3; O2SAT 98
[2023-09-06 07:25] VITALS: BP 107/65; PULSE 83; RESP 14; TEMP 36.7; O2SAT 98
[2023-09-06] MEDS: OLANZapine ODT 10 MG TAB.RAPDIS 20 MG TRANSLINGU (08:30)
[2023-09-06] MEDS: Sulfamethox/Trimeth 800/160 TABLET 1 TAB PO (08:32)
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
--- NOTE | 2023-09-06 11:27 | PC.NURSE ---
Patient submitted 3 day notice.
[2023-09-06 20:00] VITALS: BP 113/55; PULSE 112; RESP 18; TEMP 36.5; O2SAT 98
[2023-09-07 07:20] VITALS: BP 109/55; PULSE 73; RESP 14; TEMP 36.4; O2SAT 97
[2023-09-07] MEDS: OLANZapine ODT 10 MG TAB.RAPDIS 20 MG TRANSLINGU (09:07)
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
[2023-09-07 20:00] VITALS: BP 114/66; PULSE 115; RESP 18; TEMP 36.3; O2SAT 95
[2023-09-08 07:42] VITALS: BP 118/62; PULSE 76; RESP 14; TEMP 37.1; O2SAT 98
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
[2023-09-08] MEDS: OLANZapine ODT 10 MG TAB.RAPDIS 20 MG TRANSLINGU (08:39)
== END 2023-09-08 11:30 | disposition home or self-care (01) | DRG 885 ==
PROVIDERS: Physician Assistant; Admitting Provider Registered Nurse; Responsible Provider Registered Nurse; Visit Provider Psychiatry & Neurology Psychiatry
DX: F22 Delusional disorders (principal); Z20.822 Contact with and (suspected) exposure to COVID-19; Z79.899 Other long term (current) drug therapy
CPT/HCPCS: 0241U; 36415; 71045; 80048; 80076; 81001; 81003; 82140; 84443; 85025

== ENCOUNTER → 2023-08-27 13:18 | Outpatient (BNV) | payer OTHER, SELFPAY | PROVIDERS: Admitting Provider Registered Nurse; Responsible Provider Registered Nurse; Visit Provider Registered Nurse | DX: F22 Delusional disorders (principal) | CPT/HCPCS: 90792; 99231; 99232; 99238 ==